=== PATIENT | female | born 1990 | race Caucasian/White ===

== ENCOUNTER 2019-08-24 09:17 | Emergency (ER) | payer OTHER ==
[2019-08-24 09:54] VITALS: BP 122/84
--- NOTE | 2019-08-24 11:03 | UC ---
Ear Complaint HPI - HPI Summary HPI Summary: 28 yo with ear pain x several days, without hearing loss. No associated fever, sore throat or cough. --had a fall 4 days ago from the bed of a truck, tumbling with her right arm twisted under her body. Has had pain with movement since that time. No analgesics used. - History of Current Complaint Chief Complaint: UCEar Stated Complaint: RT EAR COMPLAINT,RT SHOULDER INJURY Time Seen by Provider: 08/24/19 11:02 Hx Obtained From: Patient Hx Last Menstrual Period: 08/15/2019 Onset/Duration: Sudden Onset Severity Initially: Moderate Severity Currently: Moderate - in shoulder Pain Intensity: 7 Aggravating Factors: Other - movement affects her shoulder pain Alleviating Factors: Nothing - no med used, no ice used. Associated Signs/Symptoms: Negative: Discharge, Hearing Loss - Allergies/Home Medications Allergies/Adverse Reactions: Allergies Allergy/AdvReac Type Severity Reaction Status Date / Time No Known Allergies Allergy Verified 08/24/19 09:50 PMH/Surg Hx/FS Hx/Imm Hx Previously Healthy: Yes - Surgical History Surgical History: None - Family History Known Family History: Positive: Other - no FH of hearing loss., Non-Contributory - Social History Occupation: Employed Full-time - [employer] Lives: With Family Alcohol Use: Rare Substance Use Type: None Smoking Status (MU): Light Every Day Tobacco Smoker Amount Used/How Often: 1/3 PPD Length of Time of Smoking/Using Tobacco: Since Age 16 Household Exposure Type: Cigarettes Review of Systems All Other Systems Reviewed And Are Negative: Yes Constitutional: Positive: Negative Skin: Positive: Negative Eyes: Positive: Negative ENT: Positive: Ear Ache Respiratory: Positive: Negative Cardiovascular: Positive: Negative Gastrointestinal: Positive: Negative Genitourinary: Positive: Negative Motor: Positive: Decreased ROM - right arm Musculoskeletal: Positive: Arthralgia, Decreased ROM, Myalgia Neurological: Positive: Negative Psychological: Positive: Negative Is Patient Immunocompromised?: No Physical Exam Triage Information Reviewed: Yes Appearance: Well-Appearing, Pain Distress - mild Vital Signs: Initial Vital Signs Temp 98.6 F 08/24/19 09:47 Pulse 100 08/24/19 09:47 Resp 18 08/24/19 09:47 BP 122/84 08/24/19 09:47 Pulse Ox 100 08/24/19 09:47 Eye Exam: Normal ENT: Positive: Pharynx normal, TM dull, TM red - right TM dull, red and bulging. Dental Exam: Normal Neck: Positive: Supple, Nontender, No Lymphadenopathy Respiratory: Positive: Lungs clear, Normal breath sounds Cardiovascular: Positive: RRR, No Murmur Musculoskeletal: Positive: Strength Intact, ROM Limited @ - right arm. Pain in deltoid with abduction greater than 40 degrees, forward flexion, IR. Mild TTP in upper humerus. No TTP in right clavicle or shoulder joint. Neurological Exam: Normal Psychological Exam: Normal Skin Exam: Normal Diagnostics - Radiology No standard instances Radiology Interpretation Completed By: Radiologist - Patient Name: SOFIE JEAN Medical Record#: [id number] Ordering Physician: Charley MOCTEZUMA Acct.#: [id number] : 1990 Age: 28 Sex: F Location: [facility] Exam Date: 08/24/19 1031 ADM Status: REG ER Order Information: SHOULDER RIGHT 2+ VWS Accession Number : [id number] CPT: 66362 Indication: RIGHT proximal humerus pain post fall a few days ago. Comparison: No relevant prior exams available on the [facility] for comparison. Technique: Internal rotation AP, external rotation Grashey, scapular Y, axillary views RIGHT shoulder Report: #. No cortical disruption or suspicious trabecular irregularity to suggest fracture. #. Normal acromioclavicular and glenohumeral joint alignment. #. Negative for arthropathic change. #. Negative for calcific tendinopathy or abnormal soft tissue contour. IMPRESSION : #. Negative radiographic exam of the RIGHT shoulder. <Electronically signed by Isak Snyder MD in [place]> 08/24/19 1111 Dictated By: Isak Snyder MD Dictated Date/ Time: 08/24/19 1110 Transcribed Date/Time: 08/24/19 1110 Copy to: CC:Va Wylie MD; Charley MOCTEZUMA; No Primary Care Phys,NOPCP Imaging - [facility] Imaging [facility] [address] [address] ph ([phone]) ph ([phone]) ph ([phone]) This report is only to be considered final once signed by the Provider(s) as displayed in the "<Electronically Signed by >" field (s). Absence of a signature indicates the report is in a draft status and still needs to be finalized. In the event this document was created by someone other than the signing Provider, the individual initiating the document will be listed in the "Entered by:" or "Dictated by:" buck. 1 of 1 Ear Complaint Course/Dx - Course Course Of Treatment: 1. Amoxicillin for acute right otitis media 2)Ice and ibuprofen for right arm pain - Differential Dx/Diagnosis Differential Diagnosis/HQI/PQRI: Cerumen Impaction, Otitis Externa, Otitis Media , Other - fracture right shoulder Provider Diagnosis: Right otitis media, Strain of right upper arm Discharge ED - Sign-Out/Discharge Documenting (check all that apply): Patient Departure All imaging exams completed and their final reports reviewed: No Studies - Discharge Plan Condition: Stable Disposition: HOME Prescriptions: Amoxicillin PO (*) [Amoxicillin 875 MG (*)] 875 mg PO BID #14 tab Patient Education Materials: Ear Infection (ED), Muscle Strain (ED) Referrals: No Primary Care Phys,NOPCP [Primary Care Provider] - Additional Instructions: Take amoxicillin for treatment of ear infection. Ibuprofen 600mg up to 3 times per day would help with both arm pain and ear pain. Ice the right arm and continue to gently move your arm through a range of motion. Anticipate gradual improvement in pain, but it could take several weeks to heal. - Billing Disposition and Condition Condition: STABLE Disposition: Home
== END 2019-08-24 11:33 | disposition home or self-care (01) ==
LOC: UCCORT 09:17
DX: H66.91 Otitis media, unspecified, right ear (principal); S46.911A Strain of unspecified muscle, fascia and tendon at shoulder and upper arm level, right arm, initial encounter; F17.210 Nicotine dependence, cigarettes, uncomplicated; V69.9XXA Occupant (driver) (passenger) of heavy transport vehicle injured in unspecified traffic accident, initial encounter; Y92.9 Unspecified place or not applicable
CPT/HCPCS: 99202; G0463